=== PATIENT | female | born 1995 | race African-American/Black ===

== ENCOUNTER 2021-07-16 22:30 | Emergency (ER) | payer BC ==
[~2021-07-16] VITALS: Ht 170.2 cm; Wt 93.0 kg
[2021-07-16] MEDS ORDERED: WOMEN MULTIVIT1 EAC1 PO (22:43)
[2021-07-16] MEDS ORDERED: MUCINEX100 MG PO (22:43)
[2021-07-16] MEDS ORDERED: B12 ACTIVE1000 MCG PO (22:43)
[2021-07-16 23:12] LABS: ABSOLUTE NEUTROPHILS 4.6 thou/uL (1.4-8.2); BASOPHILS 0.6 % (0.0-2.0); EOSINOPHILS 3.1 % (0.0-3.0); HEMATOCRIT 33.9 % (37.0-47.0); HEMOGLOBIN 10.8 gm/dL (12.0-15.0); LYMPHOCYTES 22.4 % (24.0-44.0); MCH 26.4 pg (26.0-34.0); MCHC 31.8 g/dL (28.0-37.0); MCV 82.8 fL (80.0-100.0); MONOCYTES 7.4 % (1.0-8.0); PLATELET COUNT 285 thou/uL (150-400); POLYS 66.5 % (36.0-66.0); RBC 4.09 mil/uL (4.20-5.00); WBC 6.9 thou/uL (4.0-11.0)
[2021-07-16 23:24] LABS: CALCIUM 8.8 mg/dL (8.5-10.1); CREATININE 0.9 mg/dL (0.6-1.0); POTASSIUM 3.7 mmol/L (3.5-5.1)
[2021-07-16 23:34] LABS: ALBUMIN 3.7 g/dL (3.4-5.0); TOTAL BILIRUBIN 0.5 mg/dL (0.2-1.0); TOTAL PROTEIN 8.4 g/dL (6.4-8.2)
[2021-07-17 00:30] VITALS: BP 131/90
--- NOTE | 2021-07-18 07:28 | EKG ---
[address] [address] ELECTROCARDIOGRAM REPORT Name: DOLORES PAZ [id number] Admission: 07/16/21 Attend Phys: Discharge: 07/17/21 Date of : [birth year] Report #: [id number] [facility] ED Test Date: 2021-07-16 Test Time: 22:47:46 Pat Name: DOLORES PAZ Department: Room: Gender: F [employer] Operator: : 1995 Requested By: Balbir Joshi Order Number: [id number] MD: Jose Eduardo Valdez Measurements Intervals Sophia Rate: 68 P: 63 FL: 206 QRS: 39 QRSD: 92 T: 26 QT: 402 QTc: 428 Interpretive Statements Sinus rhythm Borderline prolonged FL interval No previous ECG available for comparison Electronically Signed On 07-18-2021 7:28:26 CDT by Jose Eduardo Valdez [email or web address] <ELECTRONICALLY SIGNED> By: Jose Eduardo Valdez MD, MERGED WITH [facility] 07/18/21 0728 [id number] Jose Eduardo Valdez MD, FACC /EPI
== END 2021-07-17 00:40 | disposition home or self-care (01) ==
LOC: ER 22:30
PROVIDERS: Emergency Medicine
DX: U07.1 COVID-19 (principal); R07.89 Other chest pain; R06.02 Shortness of breath; J45.909 Unspecified asthma, uncomplicated; Z79.899 Other long term (current) drug therapy